=== PATIENT | male | born 1955 | race Asian ===

== ENCOUNTER 2018-09-20 16:12 | Inpatient (IN) | payer MEDICARE ==
[~2018-09-20] VITALS: Ht 162.6 cm; Wt 61.4 kg
[2018-09-22 07:41] VITALS: BP 114/77
== END 2018-09-22 15:37 | disposition home or self-care (01) | DRG 638 ==
LOC: EDSEX 16:12 → ED 19:34 → EDIP 20:42 → 3NE 22:15
PROVIDERS: ADMIT Internal Medicine; ATTEND Internal Medicine
DX: E11.649 Type 2 diabetes mellitus with hypoglycemia without coma (principal); E87.1 Hypo-osmolality and hyponatremia; N17.0 Acute kidney failure with tubular necrosis; E86.0 Dehydration; I10 Essential (primary) hypertension; Z79.84 Long term (current) use of oral hypoglycemic drugs; Z79.899 Other long term (current) drug therapy
CPT/HCPCS: 36415; 80048; 80053; 81001; 82962; 83036; 85025; 93005; 99285; G0378; J1815; J7030